=== PATIENT | female | born 1970 | race Caucasian/White ===

== ENCOUNTER 2018-06-30 19:27 | Emergency (ER) | payer SELFPAY ==
--- NOTE | 2018-06-30 20:03 | ER ---
Nurse's Notes [facility] Name: Yumiko Alcantar Age: 48 yrs Sex: Female : 1970 Arrival Date: 06/30/2018 Time: 19:30 Bed 18 Private MD: Diagnosis: Urinary tract infection, site not specified Presentation: 06/30 19:53 Presenting complaint: Patient states: burning with urination, lower back pain, lower ak1 abd pain X2 days. hematuria. pt stated she has hx UTI. pt stated she wishes to have prescription only, [place]. Transition of care: patient was not received from another setting of care. Onset of symptoms is unknown. Risk Assessment: Do you want to hurt yourself or someone else? Patient reports no desire to harm self or others. Initial Sepsis Screen: Does the patient meet any 2 criteria? No. Patient's initial sepsis screen is negative. Does the patient have a suspected source of infection? No. Patient's initial sepsis screen is negative. Care prior to arrival: None. 19:53 Method Of Arrival: Ambulatory ak1 19:53 Acuity: NICANOR 4 ak1 Triage Assessment: 19:56 General: Appears in no apparent distress. Behavior is calm, cooperative. Pain: ak1 Complains of pain in pelvis. EENT: No signs and/or symptoms were reported regarding the EENT system. Neuro: No deficits noted. Cardiovascular: No deficits noted. Respiratory: No deficits noted. GI: No signs and/or symptoms were reported involving the gastrointestinal system. 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 Derm: No signs and/or symptoms reported regarding the dermatologic system. Musculoskeletal: No signs and/or symptoms reported regarding the musculoskeletal system. 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 - Social history:: Smoking status: Patient/guardian denies using tobacco. - Ebola Screening: : No symptoms or risks identified at this time. Screenin:57 Abuse screen: Denies threats or abuse. Denies injuries from another. Nutritional ak1 screening: No deficits noted. Tuberculosis screening: No symptoms or risk factors identified. Fall Risk None identified. Vital Signs: 19:56 BP 129 / 86; Pulse 86; Resp 16; Temp 98.1(O); Pulse Ox 99% on R/A; Weight 61.23 kg (R); ak1 Height 5 ft. 9 in. (175.26 cm) (R); Pain 4/10; 19:56 Body Mass Index 19.94 (61.23 kg, 175.26 cm) ak1 ED Course: 19:30 Patient arrived in ED. es 19:50 Wolf Annad NP is PHCP. pm1 19:50 Eran Mills MD is Attending Physician. pm1 19:53 Jasmine Barrera, TOÑA is Primary Nurse. ak1 19:55 Triage completed. ak1 19:56 Arm band placed on Patient placed in an exam room, on a stretcher, on pulse oximetry, ak1 Patient notified of wait time. 19:58 Patient has correct armband on for positive identification. Call light in reach. Side ak1 rails up X 1. Pulse ox on. NIBP on. 20:04 No provider procedures requiring assistance completed. Patient did not have IV access ak1 during this emergency room visit. Administered Medications: No medications were administered Outcome: 20:02 Discharge ordered by . pm1 20:04 Discharged to home ambulatory, with family. ak1 20:04 Condition: good 20:04 Discharge instructions given to patient, Instructed on discharge instructions, follow up and referral plans. no drinking with medication, no driving heavy equipment, medication usage, safe sex practices, Demonstrated understanding of instructions, follow-up care, medications, Prescriptions given X 1. 20:12 Patient left the ED. ak1 Addendum: 07/04/2018 08:04 Addendum: Culture Results: Positive urine culture. No further action required. Bacteria i w sensitive to prescribed antibiotic. Signatures: Taylor Jackson Irene, RN RN iw Jasmine Barrera RN RN ak1 Wolf Anand NP PROJECT DEVELOPMENT LEADER pm1
--- NOTE | 2018-06-30 20:03 | EDPHYS ---
Physician Documentation [facility] Name: Yumiko Alcantar Age: 48 yrs Sex: Female : 1970 Arrival Date: 06/30/2018 Time: 19:30 Bed 18 Private MD: ED Physician Eran Mills HPI: 06/30 20:00 This 48 yrs old Female presents to ER via Ambulatory with complaints of UTI. pm1 20:00 The patient presents with urinary symptoms, dysuria, hematuria. Onset: The pm1 symptoms/episode began/occurred 3 day(s) ago. Modifying factors: The symptoms are alleviated by nothing, the symptoms are aggravated by urinating. Associated signs and symptoms: Pertinent positives: Chills, bilateral flank pain, Pertinent negatives: diarrhea, fever, nausea, vomiting. Severity of symptoms: in the emergency department the symptoms are actually worse. The patient has experienced similar episodes in the past, with the last episode occurring 2 year(s) ago, and the symptoms today are exactly the same, to previous UTI. The patient has not recently seen a physician, in [place]. Patient visiting. 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 - Social history:: Smoking status: Patient/guardian denies using tobacco. - Ebola Screening: : No symptoms or risks identified at this time. ROS: 20:00 Positive for flank pain, hematuria, burning with urination. pm1 20:00 Eyes: Negative for injury, pain, redness, and discharge, ENT: Negative for injury, pain, and discharge, Neck: Negative for injury, pain, and swelling, Cardiovascular: Negative for chest pain, palpitations, and edema. 20:00 Respiratory: Negative for shortness of breath, cough, wheezing, and pleuritic chest pain, Abdomen/GI: Negative for abdominal pain, nausea, vomiting, diarrhea, and constipation, Back: Negative for injury MS/Extremity: Negative for injury and deformity, Skin: Negative for injury, rash, and discoloration, Neuro: Negative for headache, weakness, numbness, tingling, and seizure. 20:00 Constitutional: Positive for chills, Negative for poor PO intake. 20:00 Back: Positive for flank pain, bilaterally. pm1 Exam: 20:00 Constitutional: This is a well developed, well nourished patient who is awake, alert, pm1 and in no acute distress. Head/Face: Normocephalic, atraumatic. Eyes: Pupils equal round and reactive to light, extra-ocular motions intact. Lids and lashes normal. Conjunctiva and sclera are non-icteric and not injected. Cornea within normal limits. Periorbital areas with no swelling, redness, or edema. ENT: Nares patent. No nasal discharge, no septal abnormalities noted. Tympanic membranes are normal and external auditory canals are clear. Oropharynx with no redness, swelling, or masses, exudates, or evidence of obstruction, uvula midline. Mucous membranes moist. Neck: Trachea midline, no thyromegaly or masses palpated, and no cervical lymphadenopathy. Supple, full range of motion without nuchal rigidity, or vertebral point tenderness. No Meningismus. Chest/axilla: Normal chest wall appearance and motion. Nontender with no deformity. No lesions are appreciated. Cardiovascular: Regular rate and rhythm with a normal S1 and S2. No gallops, murmurs, or rubs. Normal PMI, no JVD. No pulse deficits. Respiratory: Lungs have equal breath sounds bilaterally, clear to auscultation and percussion. No rales, rhonchi or wheezes noted. No increased work of breathing, no retractions or nasal flaring. Abdomen/GI: Soft, non-tender, with normal bowel sounds. No distension or tympany. No guarding or rebound. No evidence of tenderness throughout. 20:00 Skin: Warm, dry with normal turgor. Normal color with no rashes, no lesions, and no evidence of cellulitis. MS/ Extremity: Pulses equal, no cyanosis. Neurovascular intact. Full, normal range of motion. 20:00 Back: pain, that is mild, of the left low back and right low back, normal spinal alignment noted, vertebral tenderness, is not appreciated. 20:00 Neuro: Orientation: is normal, Motor: is normal, moves all fours, Gait: is steady, at a normal pace, without difficulty. Vital Signs: 19:56 BP 129 / 86; Pulse 86; Resp 16; Temp 98.1(O); Pulse Ox 99% on R/A; Weight 61.23 kg (R); ak1 Height 5 ft. 9 in. (175.26 cm) (R); Pain 4/10; 19:56 Body Mass Index 19.94 (61.23 kg, 175.26 cm) ak1 MDM: 19:50 Patient medically screened. pm1 20:00 Refusal of service: The patient/guardian displays adequate decision making capability pm1 and despite a detailed discussion of alternatives, benefits, risks, and consequences refuses: CT Scan, Medications, Patient refused, blood work, CT scan, and Rocephin IM. Explained to patient I am concerned that she might have pyelonephritis. Patient just wants a prescription and discharge to follow up with her PCP in [place] in a few days. Instructed patient to return to the ER for treatment and evaluation if her symptoms worsen or for any other concerns. I will prescribe the patient antibiotic treatment with duration for pyelonephritis. 20:02 Data reviewed: vital signs. Data interpreted: Pulse oximetry: on room air is 99 %. pm1 Interpretation: normal. Counseling: I had a detailed discussion with the patient and/or guardian regarding: the historical points, exam findings, and any diagnostic results supporting the discharge/admit diagnosis, lab results, the need for outpatient follow up, to return to the emergency department if symptoms worsen or persist or if there are any questions or concerns that arise at home. 06/30 19:58 Order name: Urine Dipstick--Ancillary (enter results) ms 06/30 19:58 Order name: Urine --Ancillary (enter results) ms 06/30 19:58 Order name: Urine Microscopic Only ak1 06/30 19:58 Order name: Urine Culture ak1 Administered Medications: No medications were administered Disposition: 21:38 Co-signature as Attending Physician, Eran Mills MD. pkl Disposition: 06/30/18 20:02 Discharged to Home. Impression: Urinary tract infection, site not specified. - Condition is Stable. - Discharge Instructions: Urinary Tract Infection, Adult. - Prescriptions for Bactrim DS 800- 160 mg Oral Tablet - take 1 tablet by ORAL route every 12 hours for 14 days; 28 tablet. - Medication Reconciliation Form, Thank You Letter, Antibiotic Education form. - Follow up: Emergency Department; When: As needed; Reason: Worsening of condition. Follow up: Private Physician; When: 2 - 3 days; Reason: Recheck today's complaints, Continuance of care, Re-evaluation by your physician. - Problem is new. - Symptoms have improved. Signatures: Dispatcher [employer] EDMS Eran Mills MD MD pkl Krenek, Amber RN RN ak1 Wolf Anand, TECHNOLOGY SUPPORT ANALYST TECHNOLOGY SUPPORT ANALYST pm1 Corrections: (The following items were deleted from the chart) 20:12 20:02 06/30/2018 20:02 Discharged to Home. Impression: Urinary tract infection, site ak1 not specified. Condition is Stable. Forms are Medication Reconciliation Form, Thank You Letter, Antibiotic Education, Prescription Opioid Use. Follow up: Emergency Department; When: As needed; Reason: Worsening of condition. Follow up: Private Physician; When: 2 - 3 days; Reason: Recheck today's complaints, Continuance of care, Re-evaluation by your physician. Problem is new. Symptoms have improved. pm1 22:42 20:00 Respiratory: Negative for shortness of breath, cough, wheezing, and pleuritic pm1 chest pain, Abdomen/GI: Negative for abdominal pain, nausea, vomiting, diarrhea, and constipation, Back: Negative for injury and pain, MS/Extremity: Negative for injury and deformity, Skin: Negative for injury, rash, and discoloration, Neuro: Negative for headache, weakness, numbness, tingling, and seizure, pm1
[2018-06-30 20:47] LABS: Urine Blood 3+ (NEG); Urine Glucose NEGATIVE (NEG); Urine Protein 3+ (NEG); Urine pH 8.5 (5.0-7.0)
[2018-06-30 20:56] LABS: Urine Bacteria <20 /HPF (<20); Urine RBC TNTC /HPF (NONE SEEN)
[2018-06-30 20:57] LABS: Urine Culture Reflex Order NOT NEEDED
== END 2018-06-30 20:12 | disposition home or self-care (01) ==
LOC: ER 19:27
DX: N39.0 Urinary tract infection, site not specified (principal)
CPT/HCPCS: 81003; 81015; 81025; 87077; 87086; 87088; 87186; 99283